=== PATIENT | male | born 1975 | race Caucasian/White ===

== ENCOUNTER 2020-01-14 11:55 | Emergency (ER) | payer MEDICAID, OTHER ==
[~2020-01-14] VITALS: Ht 182.9 cm; Wt 81.8 kg
[2020-01-14 13:37] LABS: BASOPHILS % (AUTO) 0.6 % (0.0-2.0); EOSINOPHILS % (AUTO) 0.4 % (1.0-6.0); HEMATOCRIT 47.8 % (41-53); HEMOGLOBIN 16.4 g/dL (13.5-17.5); LYMPHOCYTES # (AUTO) 1.1 K/uL (1.0-4.8); LYMPHOCYTES % (AUTO) 17.4 % (22.0-44.0); MEAN CORPUSCULAR HEMOGLOBIN 31.4 pg (26.0-34.0); MEAN CORPUSCULAR HGB CONC 34.2 G/dL (31.0-37.0); MEAN CORPUSCULAR VOLUME 92 fL (80-100); MONOCYTES # (AUTO) 0.5 K/uL (0.1-1.0); MONOCYTES % (AUTO) 7.6 % (2.0-9.0); NEUTROPHILS # (AUTO) 4.7 K/uL (1.8-7.7); PLATELET COUNT (AUTO) 192 K/uL (150-450); RED BLOOD CELL COUNT(AUTO) 5.22 MIL/uL (4.50-5.90); RED CELL DISTRIBUTION WIDTH 14.5 % (11.5-14.5)
[2020-01-14 13:43] LABS: AMPHET/METH SCREEN,URINE NEGATIVE (NEGATIVE); BARBITURATE SCREEN, URINE NEGATIVE (NEGATIVE); BENZODIAZEPINES SCREEN,URINE NEGATIVE (NEGATIVE); CANNABINOID SCREEN,URINE POSITIVE (NEGATIVE); COCAINE SCREEN,URINE NEGATIVE (NEGATIVE); METHADONE SCREEN, URINE NEGATIVE (NEGATIVE); OPIATE SCREEN,URINE NEGATIVE (NEGATIVE)
[2020-01-14 13:45] LABS: PHENCYCLIDINE SCREEN,URINE NEGATIVE (NEGATIVE)
[2020-01-14 13:50] LABS: POTASSIUM 3.8 mmol/L (3.5-5.1); SODIUM SERUM 138 mmol/L (136-145)
[2020-01-14 13:51] LABS: ANION GAP 10 mmol/L (8-16); CALCIUM, TOTAL 8.9 mg/dL (8.8-10.5); CARBON DIOXIDE 26 mmol/L (22-29); CHLORIDE 102 mmol/L (98-107); CREATININE 0.85 mg/dL (0.60-1.30); GLOMERULAR FILTR. RATE CALC > 60 mL/min (>60); GLUCOSE,RANDOM 93 mg/dL (70-110); UREA NITROGEN, BLOOD 6 mg/dL (7-18)
[2020-01-14 14:30] LABS: ALANINE AMINOTRANSFERASE 62 U/L (12-78); ALBUMIN 4.2 g/dL (3.4-5.0); ALKALINE PHOSPHATASE 103 U/L (46-116); ASPARTATE AMINOTRANSFERASE 80 U/L (15-37); BILIRUBIN,TOTAL 0.8 mg/dL (0.1-1.0); TOTAL PROTEIN, SERUM 8.5 g/dL (6.4-8.2)
[2020-01-14 15:34] VITALS: BP 135/71
== END 2020-01-14 15:37 | disposition home or self-care (01) ==
LOC: EMS 11:58
DX: F43.20 Adjustment disorder, unspecified (principal); F10.129 Alcohol abuse with intoxication, unspecified; Y90.6 Blood alcohol level of 120-199 mg/100 ml
CPT/HCPCS: 36415; 80053; 80307; 85025; 99285; G0480

== ENCOUNTER 2021-01-27 16:28 | Inpatient (IN) | payer OTHER ==
[~2021-01-27] VITALS: Ht 185.4 cm; Wt 72.7 kg
[2021-01-27] MEDS ORDERED: LORazepam 2 MG/ML VIAL IM ONE (16:30)
[2021-01-27] MEDS ORDERED: DiphenhydrAMINE HCL 50 MG/ML VIAL IM ONE (16:30)
[2021-01-27] MEDS ORDERED: HALOPERIDOL LACTATE 5 MG/ML VIAL IM ONE (16:30)
[2021-01-27 18:44] LABS: BASOPHILS % (AUTO) 0.1 % (0.0-2.0); EOSINOPHILS % (AUTO) 0.2 % (1.0-6.0); HEMOGLOBIN 15.3 g/dL (13.5-17.5); LYMPHOCYTES # (AUTO) 0.6 K/uL (1.0-4.8); LYMPHOCYTES % (AUTO) 5.1 % (22.0-44.0); MEAN CORPUSCULAR HEMOGLOBIN 31.1 pg (26.0-34.0); MEAN CORPUSCULAR HGB CONC 33.2 G/dL (31.0-37.0); MEAN CORPUSCULAR VOLUME 94 fL (80-100); MONOCYTES % (AUTO) 9.1 % (2.0-9.0); NEUTROPHILS # (AUTO) 9.7 K/uL (1.8-7.7); PLATELET COUNT (AUTO) 251 K/uL (150-450); RED BLOOD CELL COUNT(AUTO) 4.91 MIL/uL (4.50-5.90); RED CELL DISTRIBUTION WIDTH 14.1 % (11.5-14.5)
[2021-01-27 18:45] LABS: NEUTROPHILS % (AUTO) 85.5 % (40.0-70.0)
[2021-01-27 18:53] LABS: ANION GAP 20 mmol/L (8-16); CALCIUM, TOTAL 9.6 mg/dL (8.8-10.5); CARBON DIOXIDE 21 mmol/L (22-29); CHLORIDE 102 mmol/L (98-107); CREATININE 1.28 mg/dL (0.60-1.30); GLOMERULAR FILTR. RATE CALC > 60 mL/min (>60); GLUCOSE,RANDOM 111 mg/dL (70-110); POTASSIUM 3.3 mmol/L (3.5-5.1); SODIUM SERUM 143 mmol/L (136-145); UREA NITROGEN, BLOOD 9 mg/dL (7-18)
[2021-01-27 18:58] LABS: ALANINE AMINOTRANSFERASE 25 U/L (12-78); ALKALINE PHOSPHATASE 112 U/L (46-116); ASPARTATE AMINOTRANSFERASE 23 U/L (15-37); BILIRUBIN,TOTAL 0.9 mg/dL (0.1-1.0); TOTAL PROTEIN, SERUM 8.2 g/dL (6.4-8.2)
[2021-01-27] MEDS ORDERED: POTASSIUM CHLORIDE 20 MEQ ER TABLET PO ONE (19:45)
[2021-01-27] MEDS ORDERED: ZOLPIDEM TARTRATE 10 MG TABLET PO PRN (20:15)
[2021-01-27] MEDS ORDERED: LORazepam 2 MG TABLET PO PRN (20:15)
[2021-01-27] MEDS ORDERED: HALOPERIDOL 5 MG TABLET PO PRN (20:15)
[2021-01-27 21:01] LABS: COVID AG,FIA SOURCE NASAL SWAB
[2021-01-28 01:37] VITALS: BP 107/64
[2021-01-28 04:08] VITALS: BP 107/64
[2021-01-28 07:57] LABS: CHOL/HDL RATIO 2.4 (4.2-7.3)
[2021-01-28 08:20] VITALS: BP 109/74
[2021-01-28] MEDS: NICOTINE 14 MG/24 HOUR PATCH TD SCH ×2 (08:42→09:00)
[2021-01-28] MEDS ORDERED: ACETAMINOPHEN 325 MG TABLET PO PRN (08:45)
[2021-01-28] MEDS ORDERED: MAG HYDROX/AL HYDROX/SIMETH ES 30 ML SUSPENSION UDCUP PO PRN (08:45)
[2021-01-28] MEDS ORDERED: LOPERAMIDE HCL 2 MG CAPSULE PO PRN (08:45)
[2021-01-28] MEDS ORDERED: GuaiFENesin/D-METHORPHAN [SUGAR-FREE] 200-20MG/10 ML SYRUP UDCUP PO PRN (08:45)
[2021-01-28] MEDS ORDERED: CloNIDine HCL 0.1 MG TABLET PO PRN (08:45)
[2021-01-28] MEDS ORDERED: PETROLATUM,WHITE 28 GM JELLY TP PRN (08:45)
[2021-01-28] MEDS ORDERED: MAGNESIUM HYDROXIDE SUSPENSION 30 ML UDCUP PO PRN (08:45)
[2021-01-28] MEDS ORDERED: NICOTINE 14 MG/24 HOUR PATCH TD PRN (08:45)
[2021-01-28] MEDS ORDERED: DOCUSATE SODIUM 100 MG CAPSULE PO PRN (08:45)
[2021-01-28] MEDS ORDERED: POTASSIUM CHLORIDE 20 MEQ ER TABLET PO ONE (08:45)
[2021-01-28] MEDS ORDERED: ALBUTEROL SULFATE HFA 90 MCG/PUFF 8 GM INHALER IH PRN (08:45)
[2021-01-28] MEDS ORDERED: ONDANSETRON HCL 4 MG TABLET PO PRN (08:45)
[2021-01-28] MEDS: NICOTINE 21 MG/24 HOUR PATCH TD SCH (09:39)
[2021-01-28 16:13] VITALS: BP 108/70
[2021-01-28] MEDS: RisperiDONE 1 MG TABLET PO SCH (17:04)
[2021-01-28] MEDS: IBUPROFEN 400 MG TABLET PO PRN (22:00)
[2021-01-29 06:20] VITALS: BP 105/66
[2021-01-29] MEDS: NICOTINE 14 MG/24 HOUR PATCH TD SCH (08:26)
[2021-01-29] MEDS: NICOTINE 21 MG/24 HOUR PATCH TD SCH (08:26)
[2021-01-29] MEDS: RisperiDONE 1 MG TABLET PO SCH (08:26)
[2021-01-29 08:44] VITALS: BP 115/65
[2021-01-29 16:07] VITALS: BP 95/63
[2021-01-29] MEDS: QUEtiapine FUMARATE 100 MG TABLET PO SCH (20:47)
[2021-01-30 06:16] VITALS: BP 90/68
[2021-01-30] MEDS: NICOTINE 21 MG/24 HOUR PATCH TD SCH (08:49)
[2021-01-30] MEDS: NICOTINE 14 MG/24 HOUR PATCH TD SCH (08:49)
[2021-01-30 09:08] VITALS: BP 105/59
[2021-01-30 16:27] VITALS: BP 113/64
[2021-01-30] MEDS: QUEtiapine FUMARATE 100 MG TABLET PO SCH (20:37)
[2021-01-31 06:00] VITALS: BP 100/60
[2021-01-31] MEDS: NICOTINE 21 MG/24 HOUR PATCH TD SCH ×2 (08:50→16:45)
[2021-01-31 10:46] VITALS: BP 99/71
[2021-01-31 16:36] VITALS: BP 116/65
[2021-01-31] MEDS ORDERED: PROMETHAZINE HCL 25 MG TABLET PO PRN (18:45)
[2021-01-31] MEDS: PROMETHAZINE HCL 25 MG TABLET PO SCH (20:27)
[2021-01-31] MEDS ORDERED: QUEtiapine FUMARATE 25 MG TABLET PO SCH (21:00)
[2021-02-01 02:25] VITALS: BP 121/71
[2021-02-01] MEDS: IBUPROFEN 400 MG TABLET PO PRN (07:04)
[2021-02-01 08:25] VITALS: BP 115/64
[2021-02-01] MEDS: NICOTINE 21 MG/24 HOUR PATCH TD SCH (08:40)
[2021-02-01 16:12] VITALS: BP 109/75
[2021-02-01] MEDS: PROMETHAZINE HCL 25 MG TABLET PO SCH (20:27)
[2021-02-01] MEDS ORDERED: QUEtiapine FUMARATE 25 MG TABLET PO SCH (21:00)
[2021-02-02 05:53] VITALS: BP 102/61
[2021-02-02] MEDS: NICOTINE 21 MG/24 HOUR PATCH TD SCH (08:52)
[2021-02-02 10:16] VITALS: BP 122/67
[2021-02-02 16:12] VITALS: BP 120/78
== END 2021-02-02 16:25 | disposition home or self-care (01) | DRG 885 ==
LOC: EMS 16:28 → B3A 21:40
PROVIDERS: ADMIT Psychiatry & Neurology Child & Adolescent Psychiatry; ATTEND Psychiatry & Neurology Child & Adolescent Psychiatry
DX: F20.0 Paranoid schizophrenia (principal); D72.829 Elevated white blood cell count, unspecified; E78.5 Hyperlipidemia, unspecified; E87.6 Hypokalemia; F15.10 Other stimulant abuse, uncomplicated; F10.20 Alcohol dependence, uncomplicated; F41.9 Anxiety disorder, unspecified; Z20.822 Contact with and (suspected) exposure to COVID-19; F99 Mental disorder, not otherwise specified
CPT/HCPCS: 80053; 80061; 84132; 85025; 99291; G0480

== ENCOUNTER 2021-05-02 08:51 | Emergency (ER) | payer OTHER | END 2021-05-02 09:05 | disposition left against medical advice (07) | LOC: EMS 08:51 | DX: S16.1XXA Strain of muscle, fascia and tendon at neck level, initial encounter (principal); F20.9 Schizophrenia, unspecified; X58.XXXA Exposure to other specified factors, initial encounter; Y93.89 Activity, other specified; Y92.89 Other specified places as the place of occurrence of the external cause; Y99.8 Other external cause status | CPT/HCPCS: 99283; Z7502 ==